=== PATIENT | male | born 2000 | race Caucasian/White ===

== ENCOUNTER 2024-06-24 09:45 | Emergency (ER) | payer BC, SELFPAY ==
--- OUTSIDE RECORDS SUMMARY | 2024-06-24 09:47 | XMS_ITS | Clinical Summary ---
Author Organization [facility] Address [place], [place] [address] Care Team Providers Care Compensation Supervisor Name Role Phone ReyesteDavid elias MD Primary Care Provider + Allergies Active Allergy Reactions Criticality Noted Date Comments Amoxicillin Rash 04/05/2019 Medications naltrexone (REVIA) 50 mg tablet 10/20/2023 Active PARoxetine (PAXIL) 20 mg tablet 10/23/2023 Active Active Problems Problem Noted Date Diagnosed Date Suicidal ideation 02/19/2023 Anxiety 02/19/2023 Depression 02/19/2023 Resolved Problems Problem Noted Date Diagnosed Date Resolved Date Anxiety disorder 10/24/2020 11/17/2022 Unspecified mood (affective) disorder 10/24/2020 11/17/2022 Cannabis use disorder, mild, abuse 10/24/2020 11/17/2022 Alcohol use 10/24/2020 11/17/2022 Impulse disorder 10/24/2020 11/17/2022 Immunizations Name Administration Dates Next Due AMB Influenza, (Flumist) Jael e Intranasal,LAIV4 (Flu Clinic Only) 04/07/2010 AMB Influenza, IIV3 (Age >=3 years)(Flu Clinic Only) 04/08/2012,03/27/2008 AMB Influenza, IIV4 PF (=>6 mos Flulaval,Fluzone Fluarix)(Flu Clinic Only) 04/08/2019 COVID-19 vaccine ([employer] 30mcg/0.3mL) PF, MDV 09/24/2020,09/03/2020 DTaP 12/04/2003, 3,2002,10/03 DTaP-IPV (Kinrix) 08/21/2008 HIB-HepB (Comvax) 12/04/2003,2002,10/04/19 03 HPV 9 (Gardasil 9) 01/11/2017,01/01/2016 Hepatitis A (Peds) 10/29/2010,08/27/2009 Inactivated Polio Vaccine 02/26/2003,2002, 2002 Influenza A (H1N1), Inactivated 04/23/2009 Influenza, IIV3 (Age >=3 years) 05/14/2007,07/16 Influenza, IIV4 02/20/2020 MENINGOCOCCAL VACCINE 2 VIAL 2MO-55YO (MENVEO) 01/25/2019,01/30/2015 MMR 08/21/2008,08/21/2003 Pneumococcal conj 7-Valent (Prevnar 7) 3,2002,2002 Tdap 01/30/2015 Varicella Vaccine 08/21/2008,08/21/2003 Family History Medical History Relation Name Comments Other Brother Good Health Father Cancer Mother thyroid Other Sister Relation Name Status Comments Brother Father Mother Sister Social History Tobacco Use Types Packs/Day Years Used Date Smoking Tobacco: Every Day Cigarettes Smokeless Tobacco: Never Tobacco Cessation:Ready to Q uit: Not Asked; Counseling Given: Not Answered Alcohol Use Standard Drinks/Week Comments Not Currently 0 (1 standard drink = 0.6 oz pur e alcohol) PHQ-2 Answer Date Recorded PHQ-2 TOTAL SCORE 0 11/17/2022 Social Connections Answer Date Recorded Do you often feel lonely or isolated from those around you? 0 02/23/2024 Financial Resource Strain Answer Date R ecorded Difficulty of Paying Living Expenses 3 02/23/2024 Difficulty of Paying Living Expenses Not on file 02/23/2024 Food Insecurity Answer Date Recorded Do you worry your food will run out before you are able to buy more? 1 02/23/2024 Transportation Needs Answer Date Record ed Does lack of transportation keep you from medica l appointments? 1 02/23/2024 Does lack of transportation keep you from work, meetings or getting things that you need? 1 02/23/2024 Housing Stability Answer Date Recorded What is your housing situation today? 1 02/23/2024 Utilities Answer Date Recorded Do you have trouble paying f or utilities (for example, heat, electricity, water, phone)? 1 02/23/2024 Sex and Gender Information Value Date Recorded Sex Assigned at Not on file Legal Sex Male 5:50 AM [employer] Gender Identity Not on file Sexual Orientation Not on file Obstetrics History Last Filed Vital Signs Vital Sign Reading Time Taken Comments Blood Pressure 136/89 02/23/2024 5:40 PM CDT Pulse 108 02/23/2024 5:40 PM CDT Temperature 36.9 C (98.5 F) 02/23/2024 5:40 PM CDT Respiratory Rate 20 02/23/2024 5:40 PM CDT Oxygen Saturation 95% 02/23/2024 5:40 PM CDT Inhaled Oxygen Concentration - - Weight 96.2 kg (212 lb) 12/28/2023 1:08 PM CDT Height 170 cm (5' 6.93) 11/17/2022 11:08 AM CDT Body Mass Index - - Plan of Treatment Health Maintenance Due Date Last Done Comments Hepatitis C screening for ag e 18-79 2020 Pneumococcal series for age 6-49 (1 of 2 - PCV) 2021 02/26/2003, 2002, 2002 BMI (ht and wt on same day) for age 18+ 11/18/2023 11/17/2022, 10/02/2021, 10/23/2020 Depression screening for age 12+ 11/18/2023 11/17/2022, 10/02/2021, 10/23/2020, Additional history exists COVID-19 vaccine series (2023- season) 2024 09/24/2020, 09/03/2020 Influenza for age 9-49 01/30/2024 , 04/08/2019, 04/08/2012, Additional history exists Tetanus booster 01/30/2025 01/30/2015 Tdap Completed 01/30/2015 HPV series for age 9-26 Completed 01/11/2017, 12/31 Meningococcal series for age 11-21 Completed 2018, 01/30/2015 HIV for age 15-65 Completed 11/17/2022 Procedures Procedure Name Priority Date/Time Associated Diagnosis Comments LC HIV-1/O/2, 4TH GENERATION Routine 11/17/2022 11:39 AM CDT Screening for HIV (human immunodeficiency virus) from Last 3 Months or Most Recently Relevant to Health Maintenance Results * LC HIV-1/O/2, 4TH GENERATION (11/17/2022 11:39 AM CDT) HIV Scr 4th Gen Non Reactive Non Reactive 11/20/2022 10:06 PM CDT [facility] Comment: HIV Negative HIV-1/HIV-2 antibodies and HIV-1 p24 antigen were NOT detected. There is no laboratory evidence of HIV infection. Blood BLOOD SPECIMEN / Unknown Venipuncture / Unknown 11/17/2022 11:39 AM CDT 11/17/2022 11:39 AM CDT Narrative [facility] ([facility] - 11/20/2022 10:06 PM CDT Performed at: [address] [place] [id number] Senior Mechanical Engineer: Ady Haney MD, Phone: [phone] us David Gann MD LABORATORY Final Re sult [facility]) [address] [place] [address], from Last 3 Months or Most Recently Relevant to Health Maintenance Insurance [facility] Care Teams Compensation Supervisor Relationship Specialty Start Date End Date VotelDavid MD [address] [place] [address] PCP - General Family Practice 11/17/22
[2024-06-24 10:05] VITALS: BP 127/73; PULSE 99; RESP 26; TEMP 36.1; O2SAT 98; BMI 33.5
--- NOTE | 2024-06-24 10:31 | ED_ITS ---
HPI - Anxiety General Chief Complaint: Anxiety Stated Complaint: Body Tingling and Pain Time Seen by Provider: 06/24/24 10:22 History of Present Illness HPI narrative: This 23-year-old male comes in hyperventilating and feeling tingly. He appears significantly anxious. He is reporting some abdominal pain in the left lower quadrant that began about 30 minutes prior to arrival. He states that he does not typically have anxiety symptoms. He arrives here with normal vital signs except for his tachypnea. Related Data Allergies Allergy/AdvReac Type Severity Reaction Status Date / Time amoxicillin Allergy Intermediate rash Verified 06/24/24 10:04 Review of Systems Status of ROS: Reports: 10 or more systems reviewed and unremarkable except as noted in History and below Narrative: Constitutional: No fevers, no weight gain or loss. Eyes: No discharge. No vision changes. HENT: No congestion, no sore throat, no ear pain. Cardiovascular: No chest pain, no palpitations. Respiratory: No shortness of breath, no wheezes, no cough. Gastrointestinal: Left lower quadrant abdominal pain and 1 episode of emesis. Genitourinary: No dysuria, no hematuria. Musculoskeletal: Normal range of motion. Skin: No rashes, no pruritis. Neurological: No dizziness, weakness, sensory change, speech change. Endo/Heme/Allergies: No bruising or bleeding. No polydipsia. Pysch: no suicidality, no insomnia. He has anxiety symptoms. All other systems reviewed and are negative. [facility] Social History Smoking Status: Never smoker How many standard drinks containing alcohol do you have on a typical day: 1 or 2 AUDIT-C Alcohol total score: 0 Non-prescribed substance use: denies use Exam Narrative: Exam Narrative: Constitutional: Well-developed, well-nourished, no acute distress. HEENT: Normocephalic, atraumatic. Neck: Normal range of motion. Nontender. Supple. Heart: Regular. No murmurs. Normal rate. Intact distal pulses. Lungs: Clear to auscultation. No chest discomfort. No wheezes, rhonchi, or rales. Abdomen: Normal bowel sounds. Diffuse tenderness in the left lower quadrant. No rebound tenderness. Genitalia: Deferred. Back: No midline tenderness. Normal range of motion. Extremities: Normal range of motion. No injury. Skin: Intact. No rash. Warm. No erythema or pallor. Neurologic: No altered sensation. No weakness. Alert and oriented. Psychiatric: No suicidality. No insomnia. Nursing notes and vitals signs are reviewed. Const: Vital Signs, click to edit/add: Vital Signs - 24 hr 06/24/24 10:05 Temperature 96.9 F L Pulse Rate [Pulse Oximeter] 99 Respiratory Rate 26 H Blood Pressure [Ri ght Upper Arm] 127/73 Pulse Oximetry 98 Oxygen Delivery Me thod Room Air Course Vital Signs Vital signs: Initial Vital Signs Temperature 96.9 F L 06/24/24 10:05 Temperature Source Temporal Artery Scan 06/24/24 10:05 Pulse Rate 99 06/24/24 10:05 Respiratory Rate 26 H 06/24/24 10:05 Blood Pressure 127/73 06/24/24 10:05 Blood Pressure Mean 91 06/24/24 10:05 Pulse Oximetry 98 06/24/24 10:05 Oxygen Delivery Method Room Air 06/24/24 10:05 Vital Signs Temperature 96.9 F L 06/24/24 10:05 Pulse Rate 99 06/24/24 10:05 Respiratory Rate 26 H 06/24/24 10:05 Blood Pressure 127/73 06/24/24 10:05 Pulse Oximetry 98 06/24/24 10:05 Oxygen Delivery Method Room Air 06/24/24 10:05 Temperature 96.9 F L 06/24/24 10:05 Pulse Rate 99 06/24/24 10:05 Respiratory Rate 26 H 06/24/24 10:05 Blood Pressure 127/73 06/24/24 10:05 Pulse Oximetry 98 06/24/24 10:05 Oxygen Delivery Method Room Air 06/24/24 10:05 Medications Administered Medications: Discontinued Medications Generic Name Dose Route Start Last Admin Trade Name Freq PRN Reason Stop Dose Admin Lorazepam 0.5 mg 06/24/24 10:30 06/24/24 10:45 Lorazepam 0.5 Mg Tablet PO 06/24/24 10:31 0.5 mg ONCE ONE Administration MDM - Anxiety MDM Narrative Medical decision making narrative: This patient comes in displaying significant anxiety symptoms but also reports some abdominal pain. His exam was not such that mandated a imaging such as CT scan. I did discuss that as an option with the patient. I did recommend an oral dose of Ativan 0.5 mg. He did receive this and states that he is feeling much better. He does not report any abdominal pain currently. He feels okay to return home. Discharge Plan Discharge Clinical Impression: Acute anxiety, Abdominal pain Patient Disposition: Home, Self-Care Condition: Improved Additional Instructions: Use [id number] medicines as needed and directed. Follow up with MD return if worsening. Follow Up/Referrals: Lalo Walker MD [Primary Care Provider] - Stand Alone Forms: [employer] Info Instructions
[2024-06-24] MEDS: LORazepam 0.5 MG TABLET PO (10:45)
--- OUTSIDE RECORDS SUMMARY | 2024-06-24 11:16 | XMS_ITS | Clinical Summary ---
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 Comment: HIV Negative HIV-1/HIV-2 antibodies and HIV-1 p24 antigen were NOT detected. There is no laboratory evidence of HIV infection. Blood BLOOD SPECIMEN / Unknown Venipuncture / Unknown 11/17/2022 11:39 AM CDT 11/17/2022 11:39 AM CDT Narrative [facility] ([facility]) - 11/20/2022 10:06 PM CDT Performed at: [address] [place] [id number] Embryology Teacher: Ady Haney MD, Phone: [phone] us David Gann MD LABORATORY Final Re sult [facility] [address] [place] [address], from Last 3 Months or Most Recently Relevant to Health Maintenance Insurance [facility] Care Teams [employer] Relationship Specialty Start Date End Date VotelDavid MD [address] [place] [address] PCP - General Family Practice 11/17/22
== END 2024-06-24 11:22 | disposition home or self-care (01) ==
PROVIDERS: Emergency Provider Emergency Medicine Emergency Medical Services; PCP Family Medicine
DX: F41.9 Anxiety disorder, unspecified (principal)
CPT/HCPCS: 99283; 99284; A9270